=== PATIENT | female | born 1985 | race Caucasian/White ===

== ENCOUNTER 2017-06-13 16:19 | Emergency (ER) | payer OTHER ==
[~2017-06-13] VITALS: Ht 165.1 cm; Wt 50.0 kg
[~2017-06-13 16:19] MED LIST: CLON.5 PO; LITH150C PO; SUBO2MIS SL
[2017-06-13 16:25] VITALS: BP 131/69; PULSE 101; RESP 18; TEMP 98.7; O2SAT 98
[2017-06-13] MEDS ORDERED: LURA20TA PO (16:30)
[2017-06-13] MEDS ORDERED: LAMO100 PO (16:30)
--- NOTE | 2017-06-13 16:44 | PD ---
HPI Chief Complaint: Bite or Sting Time Seen by Provider: 16:34 Travel History International Travel<30 days: No Contact w/Intl Traveler<30days: No Traveled to known affect area: No History of Present Illness HPI 31-year-old female presents to the ED via EMS for evaluation of possible snake bite. This occurred approximately 45 minutes before arrival to the hospital. The patient states that she saw 3 snakes in her lumbar and today. She states that one of them took a kitten. She states she was attempting to kill the snake all they were in the wall, turned her back and felt a stinging sensation on the right hand. She suspects that she was bitten by a snake but she did not see this snake. On presentation she complains of numbness and tingling around the area of possible bite. She denies pain, palpitations, shortness of breath, nausea, vomiting, oral paresthesias, unusual taste in the mouth. Tetanus is up to date per the patient. PFSH Past Medical History Bipolar Disorder: Yes Anxiety: Yes Depression: Yes Diminished Hearing: No Headaches: No Herniated Disk: Yes (REPORTS MULTIPLE) Musculoskeletal: Yes Psychiatric: Yes (Bipolar; ptsd- as per patient report / PTSD) ?: Not : 3 Para: 2 Miscarriage: 0 : 1 Social History Alcohol Use: Yes (OCCASIONALLY) Tobacco Use: Yes (1 PPD) Substance Use: Yes (THC) Allergies-Medications (Allergen,Severity, Reaction): Coded Allergies: No Known Allergies (Unverified , 08/14/16) Reported Meds & Prescriptions Reported Meds & Active Scripts Active Reported Latuda (Lurasidone) 20 Mg Tab 20 Mg PO DAILY Lamictal (Lamotrigine) 100 Mg Tab 100 Mg PO BID Klonopin (Clonazepam) 0.5 Mg Tab 0.5 Mg PO BID Review of Systems Except as stated in HPI: all other systems reviewed are Neg Physical Exam Narrative GENERAL: Well-nourished, well-developed anxious white female in no acute distress. SKIN: Warm and dry. There is a miniscule possible puncture yissel on the thenar eminence of the right hand. No tenderness, erythema or bleeding noted. HEAD: Normocephalic. Atraumatic. EYES: No scleral icterus. No injection or drainage. PERRLA. EOMI. ENT: Pearly schroeder tympanic membranes bilaterally. Nasal mucosa is moist. Oropharynx without erythema, edema or exudate. NECK: Supple, trachea midline. No JVD or lymphadenopathy. CARDIOVASCULAR: Regular rate and rhythm without murmurs, gallops, or rubs. No carotid bruits. 2+ DP and radial pulses bilaterally. RESPIRATORY: Breath sounds clear and equal bilaterally. No accessory muscle use. GASTROINTESTINAL: Abdomen soft, non-tender, nondistended. + Bowel sounds MUSCULOSKELETAL: No cyanosis, or edema. NEUROLOGICAL: Awake and alert. Cranial nerves II through XII intact. Motor and sensory grossly within normal limits. Five out of 5 muscle strength in all muscle groups. Normal speech. FOCUSED RIGHT UPPER EXTREMITY EXAM: 2+ DP pulse. Patient retains full, active, painless flexion and extension of the fingers and wrists. Parmenter soft. BACK: Nontender without obvious deformity. No CVA tenderness. Data Data Last Documented VS Vital Signs Date Time Temp Pulse Resp B/P (MAP) Pulse Ox O2 Delivery O2 Flow Rate FiO2 06/13/17 17:45 06/13/17 16:25 98.7 101 18 98 Room Air Orders Orders Ecg Monitoring (06/13/17 16:34) Iv Access Insert/Monitor (06/13/17 16:34) Wound Care (06/13/17 16:34) Complete Blood Count With Diff (06/13/17 16:34) Basic Metabolic Panel (Bmp) (06/13/17 16:34) Prothrombin Time / Inr (Pt) (06/13/17 16:34) Act Partial Throm Time (Ptt) (06/13/17 16:34) Fibrinogen (06/13/17 16:34) Creatine Kinase (Cpk) (06/13/17 16:34) Sodium Chloride 0.9% Flush (Ns Flush) (06/13/17 16:45) Labs Laboratory Tests Test 06/13/17 16:45 White Blood Count 6.7 TH/MM3 Red Blood Count 4.10 MIL/MM3 Hemoglobin 12.6 GM/DL Hematocrit 37.7 % Mean Corpuscular Volume 92.0 FL Mean Corpuscular Hemoglobin 30.7 PG Mean Corpuscular Hemoglobin Concent 33.4 % Red Cell Distribution Width 13.0 % Platelet Count 263 TH/MM3 Mean Platelet Volume 7.1 FL Neutrophils (%) (Auto) 51.8 % Lymphocytes (%) (Auto) 39.3 % Monocytes (%) (Auto) 6.7 % Eosinophils (%) (Auto) 1.4 % Basophils (%) (Auto) 0.8 % Neutrophils # (Auto) 3.5 TH/MM3 Lymphocytes # (Auto) 2.6 TH/MM3 Monocytes # (Auto) 0.4 TH/MM3 Eosinophils # (Auto) 0.1 TH/MM3 Basophils # (Auto) 0.1 TH/MM3 CBC Comment DIFF FINAL Differential Comment Prothrombin Time 11.6 SEC Prothromb Time International Ratio 1.0 RATIO Activated Partial Thromboplast Time 29.2 SEC Fibrinogen 196 mg/dL Blood Urea Nitrogen 11 MG/DL Creatinine 0.79 MG/DL Random Glucose 79 MG/DL Calcium Level 8.2 MG/DL Sodium Level 140 MEQ/L Potassium Level 3.6 MEQ/L Chloride Level 107 MEQ/L Carbon Dioxide Level 26.8 MEQ/L Anion Gap 6 MEQ/L Estimat Glomerular Filtration Rate 85 ML/MIN Total Creatine Kinase 107 U/L MDM Medical Decision Making Medical Screen Exam Complete: Yes Emergency Medical Condition: Yes Differential Diagnosis insect bite versus snake bite versus abrasion versus malingering versus other Narrative Course 31-year-old female presents to the ED via EMS for evaluation of possible snake bite. This occurred approximately 45 minutes before arrival to the hospital. The patient states that she saw 3 snakes in her barn today. She states that one of them took a kitten. She states she was attempting to kill the snake "when they were in the wall" turned her back and felt a stinging sensation on the right hand. She suspects that she was bitten by a snake but she did not see this snake. On presentation she complains of numbness and tingling around the area of possible bite. She denies pain, palpitations, shortness of breath, nausea, vomiting, oral paresthesias, unusual taste in the mouth. Tetanus is up to date per the patient. On exam she points to several areas on her hand but she insists R snakebites. Shes even encircled an area with a marker. She does have a couple superficial, old abrasions but I don't see any puncture wounds or anything resembling a snake bite. Labs were drawn and first set is normal. Plan was to monitor the patient for a few hours and dry second set of labs. However during the course of the evaluation the patient suddenly and without explanation left AMA at 1745. Diagnosis Primary Impression: Bite by animal Disposition: 07 AGAINST MEDICAL ADVICE Mana Mary Jun 13, 2017 16:44
[2017-06-13] MEDS ORDERED: SODIUM CHLORIDE 0.9% FLUSH 10 ML FLUSH IV FLUSH PRN (16:45)
[2017-06-13 17:06] LABS: AUTOMATED NEUTROPHIL # 3.5 TH/MM3 (1.8-7.7); BASOPHIL # 0.1 TH/MM3 (0-0.2); BASOPHIL % 0.8 % (0.0-2.0); EOSINOPHIL # 0.1 TH/MM3 (0-0.4); EOSINOPHIL % 1.4 % (0.0-4.0); HEMATOCRIT 37.7 % (35.0-46.0); HEMO FLAGS DIFF FINAL; LYMPH % 39.3 % (9.0-44.0); LYMPHOCYTE # 2.6 TH/MM3 (1.0-4.8); MEAN CORPUSCULAR HEMOGLOBIN 30.7 PG (27.0-34.0); MEAN CORPUSCULAR HGB CONC 33.4 % (32.0-36.0); MONO % 6.7 % (0.0-8.0); NEUT % 51.8 % (16.0-70.0); PLATELET COUNT 263 TH/MM3 (150-450); WHITE BLOOD COUNT 6.7 TH/MM3 (4.0-11.0)
[2017-06-13 17:16] LABS: APTT (PATIENT) 29.2 SEC (24.3-30.1); PROTHROMBIN TIME - PATIENT 11.6 SEC (9.8-11.6)
[2017-06-13 17:20] LABS: BICARBONATE 26.8 MEQ/L (21.0-32.0); POTASSIUM 3.6 MEQ/L (3.5-5.1)
--- NOTE | 2017-06-13 18:58 | PD ---
Data Data Last Documented VS Vital Signs Date Time Temp Pulse Resp B/P (MAP) Pulse Ox O2 Delivery O2 Flow Rate FiO2 06/13/17 17:45 06/13/17 16:25 98.7 101 18 98 Room Air Orders Orders Ecg Monitoring (06/13/17 16:34) Iv Access Insert/Monitor (06/13/17 16:34) Wound Care (06/13/17 16:34) Complete Blood Count With Diff (06/13/17 16:34) Basic Metabolic Panel (Bmp) (06/13/17 16:34) Prothrombin Time / Inr (Pt) (06/13/17 16:34) Act Partial Throm Time (Ptt) (06/13/17 16:34) Fibrinogen (06/13/17 16:34) Creatine Kinase (Cpk) (06/13/17 16:34) Sodium Chloride 0.9% Flush (Ns Flush) (06/13/17 16:45) Labs Laboratory Tests Test 06/13/17 16:45 White Blood Count 6.7 TH/MM3 Red Blood Count 4.10 MIL/MM3 Hemoglobin 12.6 GM/DL Hematocrit 37.7 % Mean Corpuscular Volume 92.0 FL Mean Corpuscular Hemoglobin 30.7 PG Mean Corpuscular Hemoglobin Concent 33.4 % Red Cell Distribution Width 13.0 % Platelet Count 263 TH/MM3 Mean Platelet Volume 7.1 FL Neutrophils (%) (Auto) 51.8 % Lymphocytes (%) (Auto) 39.3 % Monocytes (%) (Auto) 6.7 % Eosinophils (%) (Auto) 1.4 % Basophils (%) (Auto) 0.8 % Neutrophils # (Auto) 3.5 TH/MM3 Lymphocytes # (Auto) 2.6 TH/MM3 Monocytes # (Auto) 0.4 TH/MM3 Eosinophils # (Auto) 0.1 TH/MM3 Basophils # (Auto) 0.1 TH/MM3 CBC Comment DIFF FINAL Differential Comment Prothrombin Time 11.6 SEC Prothromb Time International Ratio 1.0 RATIO Activated Partial Thromboplast Time 29.2 SEC Fibrinogen 196 mg/dL Blood Urea Nitrogen 11 MG/DL Creatinine 0.79 MG/DL Random Glucose 79 MG/DL Calcium Level 8.2 MG/DL Sodium Level 140 MEQ/L Potassium Level 3.6 MEQ/L Chloride Level 107 MEQ/L Carbon Dioxide Level 26.8 MEQ/L Anion Gap 6 MEQ/L Estimat Glomerular Filtration Rate 85 ML/MIN Total Creatine Kinase 107 U/L MDM Supervised Visit with KWESI: Yes Narrative Course The history, exam, and medical decision-making in the associated midlevel provider note were completed with my assistance. I reviewed and agree with the findings presented. I attest that I had a [id number] encounter with the patient on the same day, and personally performed and documented my assessment and findings in the medical record. *My assessment and Findings: This is a 31-year-old female who presents to the emergency department with concern for a snake bite to her right hand. She can isolate exactly where the snake bit her. She points to several areas on her hand. I don't appreciate any swollen or erythematous region on her hand and she has normal neurovascular exam. Labs are obtained which were initially reassuring. We Wanted to get the patient the benefit of the doubt and repeat labs in several hours but the patient did not want to stay for evaluation. She demonstrated decision-making capacity and was discharged AGAINST MEDICAL ADVICE. Diagnosis Primary Impression: Bite by animal Patient Instructions: General Instructions Departure Forms: Tests/Procedures Disposition: 07 AGAINST MEDICAL ADVICE Lizabeth Steele MD Jun 13, 2017 18:58
== END 2017-06-13 18:28 | disposition left against medical advice (07) ==
LOC: NEPD 16:19
DX: R20.0 Anesthesia of skin (principal); R20.2 Paresthesia of skin; F31.9 Bipolar disorder, unspecified; F41.9 Anxiety disorder, unspecified; F43.10 Post-traumatic stress disorder, unspecified; F17.200 Nicotine dependence, unspecified, uncomplicated; Z79.899 Other long term (current) drug therapy
CPT/HCPCS: 80048; 82550; 85025; 85384; 85610; 85730; 99283